=== PATIENT | female | born 1965 | race Caucasian/White ===

== ENCOUNTER 2017-08-26 22:49 | Emergency (ER) | payer BC ==
[~2017-08-26] VITALS: Ht 172.7 cm; Wt 168.2 kg
[2017-08-26] MEDS ORDERED: ONDANSETRON 2MG/ML, 2ML IVPush ONE (23:30)
[2017-08-26] MEDS ORDERED: KETOROLAC 30 MG/1 ML IVPush ONE (23:30)
[2017-08-26] MEDS ORDERED: SODIUM CHLORIDE FLUSH 10ML SYR IVF ONE (23:30)
[2017-08-26] MEDS ORDERED: SODIUM CHLORIDE 0.9% 1,000ML IVBOLUS ONE (23:30)
[2017-08-26] MEDS ORDERED: MORPHINE SULFATE 4 MG/ML, 1ML IVPush PRN (23:30)
[2017-08-26 23:33] LABS: HCG UR LOT HCG7030192
[2017-08-26] MEDS ORDERED: morphine SULFATE 10 MG/ML, 1ML ONE (23:36)
[2017-08-26] MEDS ORDERED: ONDANSETRON 2MG/ML, 2ML ONE (23:36)
[2017-08-26] MEDS ORDERED: KETOROLAC 30 MG/1 ML ONE (23:36)
[2017-08-26 23:44] LABS: HCG UR OBC PASS
[2017-08-27 00:26] LABS: HEMATOCRIT 40.1 % (34.6-47.8); HEMOGLOBIN 13.3 g/dL (11.7-16.4); WHITE BLOOD COUNT 13.7 x10^3/uL (3.4-10)
[2017-08-27 00:38] LABS: ASPARTATE AMINO TRANSFERASE 22 U/L (15-37); BLOOD UREA NITROGEN 20 mg/dL (7-18)
[2017-08-27 01:43] VITALS: BP 147/73
== END 2017-08-27 01:47 | disposition home or self-care (01) ==
LOC: ED 23:23
DX: N23 Unspecified renal colic (principal); N20.1 Calculus of ureter; I10 Essential (primary) hypertension; E11.9 Type 2 diabetes mellitus without complications; Z90.49 Acquired absence of other specified parts of digestive tract
CPT/HCPCS: 36415; 76770; 80053; 81001; 81025; 83690; 85025; 87086; 96361; 96374; 96375; 99285; J1885; J2405; J7030